=== PATIENT | male | born 1980 | race African-American/Black ===

== ENCOUNTER 2021-08-19 19:52 | Emergency (ER) | payer MEDICAID, SELFPAY ==
--- NOTE | ~2021-08-19 | XR_ITS ---
XR forearm LT 2V DATE: 08/19/2021 20:39 INDICATION: Pain and swelling TECHNIQUE: AP and lateral views COMPARISON: None FINDINGS: There is a transverse distal ulnar shaft fracture with up to 4 mm lateral displacement, no anterior-posterior displacement. The radius appears intact. Normal alignment at the elbow and wrist joints. IMPRESSION: 4 mm laterally displaced transverse distal ulnar shaft fracture Reviewed, dictated and finalized at location A.
[2021-08-19 20:22] VITALS: BP 127/69; PULSE 88; RESP 18; TEMP 36.5; O2SAT 97
[2021-08-19 21:11] VITALS: BP 118/68; PULSE 80; RESP 16; O2SAT 100
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
[2021-08-19] MEDS: IBUPROFEN 400 MG TABLET 800 MG PO (23:05)
[2021-08-19 23:09] VITALS: BP 118/78; PULSE 74; RESP 14; TEMP 36.4; O2SAT 98
[2021-08-19] MEDS: IBUPROFEN 400 MG TABLET (23:09)
--- NOTE | 2021-08-24 22:55 | PC.NURSE ---
LATE ENTRY This note is being entered to document information to the patient's record. The following information was omitted on [], by [].SPLINT APPLIED TO LUE, PMS INTACT AFTER APPLICATION
== END 2021-08-19 23:11 | disposition home or self-care (01) ==
PROVIDERS: Emergency Provider Nurse Practitioner Family
DX: S52.602A Unspecified fracture of lower end of left ulna, initial encounter for closed fracture (principal); V18.0XXA Pedal cycle driver injured in noncollision transport accident in nontraffic accident, initial encounter
CPT/HCPCS: 29125; 73090; 99284; A9270